=== PATIENT | female | born 1975 | race Caucasian/White ===

== ENCOUNTER 2021-02-19 07:13 | Emergency (ER) | payer OTHER ==
[2021-02-19 07:42] VITALS: BP 120/70; PULSE 79; TEMP 98.2; BMI 34.0
[2021-02-19] MEDS ORDERED: diphenhydrAMINE HCL 25 MG CAPSULE (FP) PO ONE ×2 (07:54→08:10)
[2021-02-19] MEDS ORDERED: FAMOTIDINE 10 MG TABLET PO ONE (08:02)
[2021-02-19] MEDS ORDERED: FAMOTIDINE 10 MG TABLET ONE (08:10)
== END 2021-02-19 08:54 | disposition home or self-care (01) ==
LOC: JER 07:13
DX: L29.9 Pruritus, unspecified (principal); T50.905A Adverse effect of unspecified drugs, medicaments and biological substances, initial encounter; R22.0 Localized swelling, mass and lump, head
CPT/HCPCS: 99283-25

== ENCOUNTER 2023-08-29 21:32 | Emergency (ER) | payer OTHER ==
[2023-08-29 21:41] VITALS: BP 155/87; PULSE 83; RESP 18; TEMP 98.4; BMI 34.0
[2023-08-29 23:53] LABS: BASO % 0.6 % (0-2.0); EOS % 1.1 % (0-4.5); HEMATOCRIT 27.8 % (32.4-45.2); HEMOGLOBIN 8.9 GM/dL (10.7-15.3); LYMPH % 25.7 % (8-40); MCH 25.4 pg (25.7-33.7); MEAN CELL VOLUME 79.5 fl (80-96); MEAN PLT VOLUME 7.6 fl (7.5-11.1); MONO % 5.5 % (3.8-10.2); NEUT % 67.1 % (42.8-82.8); PLATELET COUNT 398 10^3/uL (134-434); RDW 19.2 % (11.6-15.6); WHITE BLOOD COUNT 7.4 K/mm3 (4.0-10.0)
[2023-08-30] LABS: INR 1.08 (0.83-1.09); PROTHROMBIN TIME (PATIENT) 12.5 SEC (9.7-13.0)
[2023-08-30 00:03] LABS: ACTIVATED PTT 28.6 SECONDS (25.2-36.5)
[2023-08-30 00:12] LABS: CHLORIDE 108 mmol/L (98-107); POTASSIUM 4.2 mmol/L (3.5-5.1); SODIUM 141 mmol/L (136-145)
[2023-08-30 00:13] LABS: EPI CELLS 12 /uL (0-25.1); HYALINE CASTS 0 /uL (0-3.1); URINE APPEARANCE CLOUDY; URINE BACTERIA 77 /uL (0-1359); URINE BILIRUBIN NEGATIVE (NEGATIVE); URINE COLOR ORANGE; URINE GLUCOSE (UA) NEGATIVE (NEGATIVE); URINE KETONE NEGATIVE (NEGATIVE); URINE LEUK ESTERASE TRACE (NEGATIVE); URINE NITRITE NEGATIVE (NEGATIVE); URINE PROTEIN NEGATIVE (NEGATIVE); URINE RBC 4464 /uL (0-23.9); URINE WBC 26 /uL (0-25.8)
[2023-08-30 00:14] LABS: CALCIUM 9.1 mg/dL (8.5-10.1)
[2023-08-30 00:15] LABS: ALBUMIN 3.1 g/dl (3.4-5.0); ANION GAP 6 mmol/L (4-13); CO2 27 mmol/L (21-32); GLUCOSE,RANDOM 100 mg/dL (74-106); MAGNESIUM 2.2 mg/dL (1.8-2.4)
[2023-08-30 00:18] LABS: CREATININE 0.8 mg/dL (0.55-1.3); SGOT/AST 16 U/L (15-37); SGPT/ALT 16 U/L (13-61)
[2023-08-30 00:19] LABS: BILIRUBIN,TOTAL 0.2 mg/dL (0.2-1); TOT PROT 7.1 g/dl (6.4-8.2)
[2023-08-30 00:21] LABS: ALK PHOS 57 U/L (45-117)
== END 2023-08-30 01:07 | disposition home or self-care (01) ==
LOC: JER 21:32
DX: N92.6 Irregular menstruation, unspecified (principal)
CPT/HCPCS: 36415; 80053; 81003; 83735; 84702; 85025; 85610; 85730; 86850; 86900; 86901; 87086; 99283-25

== ENCOUNTER 2023-09-15 08:55 | Emergency (ER) | payer OTHER ==
[2023-09-15 09:06] VITALS: BMI 34.0
[2023-09-15] MEDS ORDERED: KETOROLAC TROMETHAMINE 30 MG/1 ML VIAL ONE (09:26)
[2023-09-15] MEDS ORDERED: ACETAMINOPHEN 500 MG TABLET (FP) ONE (09:26)
[2023-09-15] MEDS: KETOROLAC TROMETHAMINE 30 MG/1 ML VIAL IM ONE (09:32)
[2023-09-15] MEDS: ACETAMINOPHEN 500 MG TABLET (FP) PO ONE (09:32)
[2023-09-15 11:27] VITALS: BP 148/70; PULSE 69; RESP 18; TEMP 98.1
== END 2023-09-15 11:49 | disposition home or self-care (01) ==
LOC: JERFT 08:55
PROC: 3E0233Z Introduction of Anti-inflammatory into Muscle, Percutaneous Approach (ICD-10-PCS; principal; 2023-09-15)
DX: M79.601 Pain in right arm (principal); M25.511 Pain in right shoulder; M25.521 Pain in right elbow; M25.531 Pain in right wrist; W01.198A Fall on same level from slipping, tripping and stumbling with subsequent striking against other object, initial encounter; Y92.009 Unspecified place in unspecified non-institutional (private) residence as the place of occurrence of the external cause; Y93.01 Activity, walking, marching and hiking
CPT/HCPCS: 73030-TC-RT-FY; 73060-TC-RT-FY; 73070-TC-RT-FY; 73090-TC-RT-FY; 73110-TC-RT-FY; 99284-25